=== PATIENT | male | born 1970 ===

== ENCOUNTER 2017-08-21 21:38 | Inpatient (IN) | payer MEDICAID ==
[2017-08-21 21:39] VITALS: BMI 31.7
--- NOTE | 2017-08-21 23:15 | ED PDOC ---
HPI: Psych/Substance Abuse Time Seen by Provider: 08/21/17 21:40 Chief Complaint (Nursing): Psychiatric Evaluation Chief Complaint (Provider): Psychiatric Evaluation ED Caveat: Intoxicated History Per: Patient History/Exam Limitations: no limitations Onset/Duration Of Symptoms: Mins (SKILLS TRAINER) Current Symptoms Are (Timing): Still Present Additional Complaint(s): 47 year old male presents to the ED for evaluation. Patient reports that he drank "too much", but is a poor historian due to alcohol intake. Denies any medical complaints. PMD: none provided Past Medical History Reviewed: Historical Data, Nursing Documentation, Vital Signs Vital Signs: Last Vital Signs Temp 98.2 F 08/21/17 21:40 Pulse 104 H 08/21/17 21:40 Resp 16 08/21/17 21:40 BP 152/95 H 08/21/17 21:40 Pulse Ox 92 L 08/21/17 21:40 - Medical History PMH: Anxiety, Asthma, Bipolar Disorder, Bronchitis, COPD, Depression, Fibromyalgia, Fractures (b/l elbows), GERD, HTN, Paranoia, Schizophrenia Denies: Alzheimer's Disease, Anemia, Arthritis, Cardia Arrhythmia, CHF, Crohn 's Disease, Dementia, Diabetes, Diverticulitis, Emphysema, Gastrointestinal Ulcer, Gall Bladder Disease, Hepatitis, HIV, Hypercholesterolemia, Hyperthyroidism, Hypothyroidism, Kidney Stones, Migraine, Mitral Valve Prolapse , Osteoporosis, Pancreatitis, Parkinson's Disease, Peripheral Edema, Pneumonia, Post Traumatic Stress Disorder, Chronic Kidney Disease, Seizures, Sickle Cell Disease, Sexually Transmitted Disease, Sleep Apnea, TIA - Surgical History Surgical History: Denies: Appendectomy, Cholecystectomy, Coronary Stent, Pacemaker - Family History Family History: States: Unknown Family Hx - Immunization History Hx Tetanus Toxoid Vaccination: Yes (09/09/06) Hx Influenza Vaccination: No Hx Pneumococcal Vaccination: No - Home Medications Home Medications: Ambulatory Orders Medication Instructions Recorded Acetaminophen [Tylenol 325mg tab] 650 mg PO Q6H PRN tab 06/09/17 Albuterol 0.5% [Albuterol 0.5% 2.5 mg IH QID PRN neb 06/09/17 Inhal Cindy (2.5 mg/0.5 ml) UD] Atorvastatin [Lipitor] 20 mg PO DIN #30 tab 06/09/17 Divalproex [Depakote DR(*BID*)] 500 mg PO AMHS #30 tcp 06/09/17 Famotidine 40 mg PO DAILY 06/09/17 Famotidine [Pepcid] 40 mg PO HS #30 tab 06/09/17 Folic Acid 1 mg PO DAILY tab 06/09/17 Gabapentin [Neurontin] 600 mg PO TID #60 tab 06/09/17 Insulin Human Regular-LOW [HumuLIN 1 units SC ACHS #10 ml 06/09/17 R LOW] Lisinopril [Zestril] 5 mg PO DAILY #20 tab 06/09/17 MetFORMIN [glucoPHAGE] 850 mg PO BID #30 tab 06/09/17 Pantoprazole [Protonix EC Tab] 40 mg PO ACB ect 06/09/17 QUEtiapine [Seroquel] 200 mg PO AMHS #0 tab 06/09/17 SITagliptin [Januvia] 100 mg PO DAILY tab 06/09/17 Thiamine [Vitamin B1 Tab] 100 mg PO DAILY tab 06/09/17 Zolpidem [Ambien] 10 mg PO HS PRN #15 tab 06/09/17 - Allergies Allergies/Adverse Reactions: Allergies Allergy/AdvReac Type Severity Reaction Status Date / Time BEE STINGS Allergy Severe ANAPHYLAXIS Uncoded 08/21/17 21:40 Review of Systems ROS Statement: Except As Marked, All Systems Reviewed And Found Negative Review Of Systems: ROS cannot be obtained secondary to pt's inabilty to answer questions. (intoxicated) Physical Exam - Reviewed Nursing Documentation Reviewed: Yes Vital Signs Reviewed: Yes - Physical Exam Appears: Positive for: No Acute Distress (intoxi) Head Exam: Positive for: ATRAUMATIC, NORMOCEPHALIC Skin: Positive for: Normal Color, Warm, Dry Eye Exam: Positive for: EOMI, Normal appearance, PERRL Neck: Positive for: Normal, Painless ROM, Supple Cardiovascular/Chest: Positive for: Regular Rate, Rhythm Respiratory: Positive for: CNT, Normal Breath Sounds Extremity: Positive for: Normal ROM. Negative for: Deformity Neurologic/Psych: Positive for: Alert, Oriented. Negative for: Motor/Sensory Deficits - Laboratory Results Result Diagrams: 08/21/17 23:22 08/21/17 23:22 - ECG O2 Sat by Pulse Oximetry: 92 (RA) Pulse Ox Interpretation: Normal Medical Decision Making Medical Decision Making: Time: 21:57 Impression: alcohol intoxication Initial Plan: --Salicylate --Acetaminophen --BMP --Urine drug --CBC with differentials --Restraint: violent --Urinalysis --pending sobriety and reevaluation Patient was agitated and needed to be restrained due to being danger to self and staff in the ER. Crisis evaluation was ordered. pt clinically sober. Time: 03:20 --Patient is admitted to inpatient care in Adult Psychiatry as per crisis to Dr. Love. Diagnosis is bipolar disorder. Labs revealed patient is positive for cocaine in urine drug screen. Scribe Attestation: Documented by Kiki Clarke, acting as a scribe for Frankie Metz MD. Provider Scribe Attestation: All medical record entries made by the Scribe were at my direction and personally dictated by me. I have reviewed the chart and agree that the record accurately reflects my personal performance of the history, physical exam, medical decision making, and the department course for this patient. I have also personally directed, reviewed, and agree with the discharge instructions and disposition. Disposition - Clinical Impression Clinical Impression: Bipolar 1 disorder - Patient ED Disposition Is Patient to be Admitted: Yes - Disposition Disposition Time: 00:21 Condition: STABLE - Pt Status Changed To: Hospital Disposition Of: Inpatient - Admit Certification Admit to Inpatient:: After my assessment, the patient will require hospitalization for at least two midnights. This is because of the severity of symptoms shown, intensity of services needed, and/or the medical risk in this patient being treated as an outpatient.
[2017-08-21 23:59] LABS: BASO # 0.1 K/uL (0.0-0.2); BASO % 1.1 % (0.0-2.0); EOS # 0.7 K/uL (0.0-0.7); EOS % 5.7 % (0.0-4.0); HEMOGLOBIN 18.2 g/dL (12.0-18.0); LYMPH % 40.8 % (20.0-40.0); MEAN CELL VOLUME 90.7 fl (80.0-94.0); MEAN CORPUSCULAR HEMOGLOBIN 30.8 pg (27.0-31.0); MEAN PLATELET VOLUME 9.9 fl (7.2-11.7); MONO # 0.7 K/uL (0.0-0.8); MONO % 5.9 % (0.0-10.0); NEUT # 5.7 K/uL (1.8-7.0); NEUT % 46.5 % (50.0-75.0); NRBC % 0.2 % (0.0-0.0); RBC 5.92 Mil/uL (4.40-5.90); RED CELL DISTRIBUTION WIDTH 15.5 % (11.5-14.5); WHITE BLOOD COUNT 12.2 K/uL (4.8-10.8)
[2017-08-22 00:06] LABS: ACETAMINOPHEN < 10.0 ug/ml (10.0-30.0); BLOOD UREA NITROGEN 10 mg/dl (9-20); CALCIUM 9.3 mg/dL (8.4-10.2); GFR AFRICAN-AMERICAN > 60; GFR NON-AFRICAN AMERICAN > 60; SALICYLATE < 1.0 mg/dl
[2017-08-22 02:47] LABS: BARBITURATES, UR NEGATIVE (NEGATIVE); BENZODIAZEPINES, UR NEGATIVE (NEGATIVE); OPIATES, UR NEGATIVE (NEGATIVE); PHENCYCLIDINE, UR NEGATIVE (NEGATIVE); SQUAMOUS EPITHIAL < 1 /hpf (0-5); URINE BACTERIA RARE (<OCC); URINE BILIRUBIN NEGATIVE (NEGATIVE); URINE BLOOD NEGATIVE (NEGATIVE); URINE CLARITY SLIGHTY-CLOUDY (Clear); URINE COLOR YELLOW (YELLOW); URINE GLUCOSE (UA) NEG (Normal); URINE LEUKOCYTE ESTERASE NEG Leu/uL (Negative); URINE PROTEIN 100 mg/dL (NEGATIVE)
--- NOTE | 2017-08-22 08:56 | CARD ---
APPROVED REPORT EKG Measurement Heart [id number] <Conclusion> Sinus tachycardia Incomplete right bundle branch block Borderline ECG
[2017-08-22] MEDS ORDERED: Magnesium Hydroxide Susp 30 ml UD PO PRN (09:02)
[2017-08-22] MEDS ORDERED: DiphenhydrAMINE 50 mg/ml Inj IM PRN (09:02)
[2017-08-22] MEDS ORDERED: Alum-Mag Hydrox-Simethicone Susp (30 mL) PO PRN (09:02)
--- NOTE | 2017-08-22 09:40 | RAD ---
HISTORY: chest pain COMPARISON: Comparison made with chest radiograph 03/01/2011. FINDINGS: LUNGS: Poor inspiration with low lung volumes, crowded bronchovascular markings and bibasilar atelectasis; developing lower lobe infiltrates could be excluded with followup radiographs. PLEURA: No significant pleural effusion identified, no pneumothorax apparent. CARDIOVASCULAR: Heart size borderline enlarged OSSEOUS STRUCTURES: No significant abnormalities. VISUALIZED UPPER ABDOMEN: Normal. OTHER FINDINGS: None. IMPRESSION: Poor inspiration with low lung volumes, crowded bronchovascular markings and bibasilar atelectasis; developing lower lobe infiltrates could be excluded with followup radiographs.
[2017-08-22] MEDS: Pantoprazole 40 mg EC Tab PO SCH (12:54)
--- NOTE | 2017-08-22 14:34 | PCM.PSYCH ---
Initial Psychiatric Evaluation - Initial Psychiatric Evaluation Type of Admission: Voluntary Legal Status: Capacity Chief Complaint (in patient's own words): I am depressed and I am hearin voices Patient's Reaction to Hospitalization: pt requesting help History of Present Illness and Precipitating Events: Pt is a 47yo male with previous diagnosis of alcohol, cocaine and cannabis use disorder, Pt was recently admitted in [facility] psych unit from 08/05-08/20. Pt on discharge relapsed on alcohol and cocaine, became increasingly depressed, related to homelessness pt started experiencing suicidal ideations, he also started experiencing auditory hallucinations command in nature to hurt himself and others, pt came to ER seeking help. on the unit pt reported feeling hopeless and helpless , denied any current suicidal ideations or intent on the unit also denied command hallucinations Current Medications: Active Medications Generic Name Dose Route Start Last Admin Trade Name Freq PRN Reason Stop Dose Admin Acetaminophen 650 mg 08/22/17 09:02 Tylenol 325mg Tab PO Q4 PRN Pain, moderate (4-7) Al Hydrox/Mg Hydrox/Simethicone 30 ml 08/22/17 09:02 Maalox Plus 30 Ml PO Q4 PRN Dyspepsia Atorvastatin Calcium 20 mg 08/22/17 17:00 Lipitor PO DIN ALEX Diphenhydramine HCl 50 mg 08/22/17 09:02 Benadryl IM Q6 PRN Extrapyramidal S/S Unable PO Diphenhydramine HCl 50 mg 08/22/17 09:02 Benadryl PO Q6 PRN Extrapyramidal Symptoms Famotidine 40 mg 08/22/17 22:00 Pepcid PO HS ALEX Folic Acid 1 mg 08/22/17 10:00 08/22/17 12:54 Folic Acid PO 1 mg DAILY ALEX Administration Gabapentin 100 mg 08/22/17 17:00 Neurontin PO TID ALEX Haloperidol 5 mg 08/22/17 09:02 Haldol PO Q4 PRN Agitation Haloperidol Lactate 5 mg 08/22/17 09:02 Haldol IM Q4 PRN Agitation, Unable to Take PO Lisinopril 5 mg 08/22/17 10:00 08/22/17 12:53 Zestril PO 5 mg DAILY ALEX Administration Lorazepam 2 mg 08/22/17 09:02 Ativan IM Q4 PRN Anxiety/Agitation,Unable PO Lorazepam 2 mg 08/22/17 09:02 Ativan PO Q4 PRN Anxiety/Agitation Lorazepam 1 mg 08/22/17 14:15 Ativan PO TID ALEX Magnesium Hydroxide 30 ml 08/22/17 09:02 Milk Of Magnesia PO HS PRN Constipation Metformin HCl 850 mg 08/22/17 10:00 08/22/17 12:55 Glucophage PO 850 mg BID ALEX Administration Pantoprazole Sodium 40 mg 08/22/17 10:00 08/22/17 12:54 Protonix Ec Tab PO 40 mg ACB ALEX Administration Quetiapine Fumarate 25 mg 08/22/17 17:00 Seroquel PO BID ALEX Quetiapine Fumarate 100 mg 08/22/17 22:00 Seroquel PO HS ALEX Sitagliptin Phosphate 100 mg 08/22/17 09:54 08/22/17 12:54 Januvia PO 100 mg DAILY ALEX Administration Thiamine HCl 100 mg 08/22/17 10:00 08/22/17 12:54 Vitamin B1 Tab PO 100 mg DAILY ALEX Administration Past Psychiatric History - Past Psychiatric History Explanation of prior treatment: pt has multiple inpatient hospitalizations, history of non compliance with treatment History of ETOH/Drug Use: history of alcohol, cocaine and cannabis use Pertinent Medical Hx (Current Medical&Sleep Prob, Allergies): Allergies Allergy/AdvReac Type Severity Reaction Status Date / Time BEE STINGS Allergy Severe ANAPHYLAXIS Uncoded 08/21/17 21:40 Acetaminophen [Tylenol 325mg tab] 650 mg PO Q6H PRN tab 06/09/17 Albuterol 0.5% [Albuterol 0.5% Inhal Cindy (2.5 mg/0.5 ml) UD] 2.5 mg IH QID PRN neb 06/09/17 Atorvastatin [Lipitor] 20 mg PO DIN #30 tab 06/09/17 Divalproex [Depakote DR(*BID*)] 500 mg PO AMHS #30 tcp 06/09/17 Famotidine 40 mg PO DAILY 06/09/17 Famotidine [Pepcid] 40 mg PO HS #30 tab 06/09/17 Folic Acid 1 mg PO DAILY tab 06/09/17 Gabapentin [Neurontin] 600 mg PO TID #60 tab 06/09/17 Insulin Human Regular-LOW [HumuLIN R LOW] 1 units SC ACHS #10 ml 06/09/17 Lisinopril [Zestril] 5 mg PO DAILY #20 tab 06/09/17 MetFORMIN [glucoPHAGE] 850 mg PO BID #30 tab 06/09/17 Pantoprazole [Protonix EC Tab] 40 mg PO ACB ect 06/09/17 QUEtiapine [Seroquel] 200 mg PO AMHS #0 tab 06/09/17 SITagliptin [Januvia] 100 mg PO DAILY tab 06/09/17 Thiamine [Vitamin B1 Tab] 100 mg PO DAILY tab 06/09/17 Zolpidem [Ambien] 10 mg PO HS PRN #15 tab 06/09/17 Mental Status Examination - Personal Presentation Personal Presentation: Looks older than stated age Additional comments: unkempt, disheveled - Affect Affect: Constricted, Depressed - Motor Activity Motor Activity: Psychomotor Retardation - Reliability in Providing Information Reliability in Providing Information: Poor, due to alteration in thoughts, Poor , due to altered mood - Speech Speech: Tangential - Mood Mood: Depressed, Anxious - Formal Thought Process Formal Thought Process: Circumstantial - Hallucinations/Delusions Hallucinations: Auditory Additional comments: pt reported non command auditory hallucinations - Obsessions/Compulsions Obsessions: No Compulsions: No - Cognitive Functions Orientation: Person, Place Sensorium: Alert Attention/Concentration: Attentive Abstract Thinking: Rarden Estimate of Intelligence: Below average Judgement: Imparied, as evidence by: Poor judgement, Imparied, as evidence by: Lack of insight into illness - Risk Risk: Withdrawal, Diminished functioning - Strength & Assets Inventory Strength & Assets Inventory: Life experience - Limitations Additional comments: homelessness DSM 5 DX - DSM 5 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 cocaine use disorder alcohol use disorder hx of bipolar disorder - Recommended/Plan of Treatment Treatment Recommendations and Plan of Treatment: ativan 1mg tid , monitor pt for symptoms and signs of alcohol withdrawal neurontin 100mg tid for anxiety and alcohol withdrawal seizures seroquel 25mg bid and 100mg qhs with plan to uptitrate gradually motivational and group therapy monitor pt for psychopharmacological effects and side effect profile Prognosis: guarded Discharge Plan and Discharge Criteria: pt mental status stable
--- NOTE | 2017-08-22 14:54 | CP.PCM.CON ---
History of Present Illness - History of Present Illness History of Present Illness: Reason for Consult: Per hospital protocol HPI: 47M PMH DM HTN HLD GERD admitted to psych for cocaine induced psychosis. No other complaints at this time. HD stable, NAD. ROS: Per HPI, all other systems reviewed and neg PMH: DM HTN HLD GERD PSH: elbow FH: denies SH: +ETOH, COCAINE, MARIJUANA NKDA Vitals Reviewed GEN: WDWN, ALERT, COOPERATIVE HEENT: NCAT, PERRL, EOMI HEART: RRR, +S1S2, NO MRG LUNG: CTAB, NO WRR ABD: SOFT, NT, ND, NO HSM, NO MASSES EXT: NORMAL PEDAL PULSES, GOOD CAPILLARY REFILL NEURO: AAOX3, STRENGTH EQUAL BILATERAL UPPER AND LOWER EXTREMITIES SKIN: WARM, DRY PSYCH: NORMAL MOOD, NORMAL AFFECT LABS 08/22/17 08/22/17 08/21/17 02:24 02:24 23:22 WBC 12.2 H RBC 5.92 H Hgb 18.2 H Hct 53.7 H MCV 90.7 MCH 30.8 MCHC 34.0 RDW 15.5 H Plt Count 213 MPV 9.9 Neut % (Auto) 46.5 L Lymph % (Auto) 40.8 H [place] % (Auto) 5.9 Eos % (Auto) 5.7 H Baso % (Auto) 1.1 Neut # (Auto) 5.7 Lymph # (Auto) 5.0 H [place] # (Auto) 0.7 Eos # (Auto) 0.7 Baso # (Auto) 0.1 Sodium Potassium Chloride Carbon Dioxide Anion Gap BUN Creatinine Est GFR ( Amer) Est GFR (Non-Af Amer) POC Glucose (mg/dL) Random Glucose Calcium Urine Color Yellow Urine Clarity Slighty-cloudy Urine pH 6.0 Ur Specific Bishop 1.023 Urine Protein 100 Urine Glucose (UA) Neg Urine Ketones Negative Urine Blood Negative Urine Nitrate Negative Urine Bilirubin Negative Urine Urobilinogen 4.0 Ur Leukocyte Esterase Neg Urine RBC (Auto) 3 Urine Microscopic WBC < 1 Ur Squamous Epith Cells < 1 Urine Bacteria Rare Hyaline Casts 3-5 H Salicylates Urine Opiates Screen Negative Urine Methadone Screen Negative Acetaminophen Ur Barbiturates Screen Negative Ur Phencyclidine Scrn Negative Ur Amphetamines Screen Negative U Benzodiazepines Scrn Negative U Oth Cocaine Metabols Positive H U Cannabinoids Screen Negative Alcohol, Quantitative 08/21/17 08/21/17 08/21/17 23:22 23:22 22:26 WBC RBC Hgb Hct MCV MCH MCHC RDW Plt Count MPV Neut % (Auto) Lymph % (Auto) [place] % (Auto) Eos % (Auto) Baso % (Auto) Neut # (Auto) Lymph # (Auto) [place] # (Auto) Eos # (Auto) Baso # (Auto) Sodium 148 Potassium 3.9 Chloride 103 Carbon Dioxide 23 Anion Gap 26 H BUN 10 Creatinine 0.7 L Est GFR ( Amer) > 60 Est GFR (Non-Af Amer) > 60 POC Glucose (mg/dL) 117 H Random Glucose 123 H Calcium 9.3 Urine Color Urine Clarity Urine pH Ur Specific Bishop Urine Protein Urine Glucose (UA) Urine Ketones Urine Blood Urine Nitrate Urine Bilirubin Urine Urobilinogen Ur Leukocyte Esterase Urine RBC (Auto) Urine Microscopic WBC Ur Squamous Epith Cells Urine Bacteria Hyaline Casts Salicylates < 1.0 Urine Opiates Screen Urine Methadone Screen Acetaminophen < 10.0 L Ur Barbiturates Screen Ur Phencyclidine Scrn Ur Amphetamines Screen U Benzodiazepines Scrn U Oth Cocaine Metabols U Cannabinoids Screen Alcohol, Quantitative 274 H ASSESSMENT AND PLAN 47M PMH DM HTN HLD GERD admitted to psych for cocaine induced psychosis. No other complaints at this time. HD stable, NAD. DM HTN HLD GERD continue home medications as below: SITagliptin [Januvia] 100 mg PO DAILY Folic Acid 1 mg PO DAILY Lisinopril [Zestril] 5 mg PO DAILY Pantoprazole [Protonix EC Tab] 40 mg PO ACB Thiamine [Vitamin B1 Tab] 100 mg PO DAILY metFORMIN [glucOPHAGE] 850 mg PO BID Atorvastatin [Lipitor] 20 mg PO DIN Gabapentin [Neurontin] 100 mg PO TID Famotidine [Pepcid] 40 mg PO HS Past Patient History - Infectious Disease Hx of Infectious Diseases: None - Tetanus Immunizations Tetanus Immunization: Unknown - Past Social History Smoking Status: Heavy Smoker > 10 Cigarettes Daily - CARDIAC Hx Cardiac Disorders: No Hx Hypertension: Yes - PULMONARY Hx Respiratory Disorders: No Hx Tuberculosis: No - NEUROLOGICAL Hx Neurological Disorder: No HX Cerebrovascular Accident: No Hx Seizures: No - HEENT Hx HEENT Problems: No Hx Cataracts: No Hx Deafness: No Hx Difficulty Chewing: No Hx Epistaxis: No Hx Glaucoma: No Hx Macular Degeneration: No Other/Comment: Wears Glasses - RENAL Hx Chronic Kidney Disease: No Hx Kidney Stones: No - ENDOCRINE/METABOLIC Hx Hyperthyroidism: No Hx Hypothyroidism: No - HEMATOLOGICAL/ONCOLOGICAL Hx Blood Disorders: No Hx Cancer: No Hx Human Immunodeficiency Virus (HIV): No - INTEGUMENTARY Hx Dermatological Problems: No Hx Basil Cell: No Hx Eczema: No Hx Melanoma: No Hx Psoriasis: No Hx Squamous Cell: No - MUSCULOSKELETAL/RHEUMATOLOGICAL Hx Musculoskeletal Disorders: Yes Hx Arthritis: No Hx Fractures: Yes (b/l elbows) Hx Osteoporosis: No - GASTROINTESTINAL Hx Gastrointestinal Disorders: No Hx Crohn's Disease: No Hx Diverticulitis: No Hx Gall Bladder Disease: No Hx Pancreatitis: No - GENITOURINARY/GYNECOLOGICAL Hx Genitourinary Disorders: No Hx Sexually Transmitted Disorders: No - PSYCHIATRIC Hx Anxiety: Yes Hx Depression: Yes Hx Emotional Abuse: No Hx Physical Abuse: No Hx Sexual Abuse: No Hx Substance Use: Yes (Urine positive for cocaine) - SURGICAL HISTORY Hx Appendectomy: No Hx Cholecystectomy: No Hx Coronary Stent: No - ANESTHESIA Hx Anesthesia: Yes Hx Anesthesia Reactions: No Hx Malignant Hyperthermia: No Meds Allergies/Adverse Reactions: Allergies Allergy/AdvReac Type Severity Reaction Status Date / Time BEE STINGS Allergy Severe ANAPHYLAXIS Uncoded 08/21/17 21:40 - Medications Medications: Current Medications Acetaminophen (Tylenol 325mg Tab) 650 mg PO Q4 PRN PRN Reason: Pain, moderate (4-7) Al Hydrox/Mg Hydrox/Simethicone (Maalox Plus 30 Ml) 30 ml PO Q4 PRN PRN Reason: Dyspepsia Atorvastatin Calcium (Lipitor) 20 mg PO DIN ALEX Diphenhydramine HCl (Benadryl) 50 mg IM Q6 PRN PRN Reason: Extrapyramidal S/S Unable PO Diphenhydramine HCl (Benadryl) 50 mg PO Q6 PRN PRN Reason: Extrapyramidal Symptoms Famotidine (Pepcid) 40 mg PO HS [facility] Folic Acid (Folic Acid) 1 mg PO DAILY [facility] Last Admin: 08/22/17 12:54 Dose: 1 mg Gabapentin (Neurontin) 100 mg PO TID ALEX Haloperidol (Haldol) 5 mg PO Q4 PRN PRN Reason: Agitation Haloperidol Lactate (Haldol) 5 mg IM Q4 PRN PRN Reason: Agitation, Unable to Take PO Lisinopril (Zestril) 5 mg PO DAILY [facility] Last Admin: 08/22/17 12:53 Dose: 5 mg Lorazepam (Ativan) 2 mg IM Q4 PRN PRN Reason: Anxiety/Agitation,Unable PO Lorazepam (Ativan) 2 mg PO Q4 PRN PRN Reason: Anxiety/Agitation Lorazepam (Ativan) 1 mg PO TID [facility] Last Admin: 08/22/17 14:46 Dose: 1 mg Magnesium Hydroxide (Milk Of Magnesia) 30 ml PO HS PRN PRN Reason: Constipation Metformin HCl (Glucophage) 850 mg PO BID [facility] Last Admin: 08/22/17 12:55 Dose: 850 mg Pantoprazole Sodium (Protonix Ec Tab) 40 mg PO ACB [facility] Last Admin: 08/22/17 12:54 Dose: 40 mg Quetiapine Fumarate (Seroquel) 25 mg PO BID [facility] Quetiapine Fumarate (Seroquel) 100 mg PO HS [facility] Sitagliptin Phosphate (Januvia) 100 mg PO DAILY [facility] Last Admin: 08/22/17 12:54 Dose: 100 mg Thiamine HCl (Vitamin B1 Tab) 100 mg PO DAILY [facility] Last Admin: 08/22/17 12:54 Dose: 100 mg Results - Vital Signs Recent Vital Signs: Last Vital Signs Temp 97.9 F 08/22/17 10:00 Pulse 109 H 08/22/17 12:53 Resp 20 08/22/17 10:00 BP 160/115 H 08/22/17 12:53 Pulse Ox 96 08/22/17 06:18 - Labs Result Diagrams: 08/21/17 23:22 08/21/17 23:22 Labs: Laboratory Results - last 24 hr 08/21/17 08/21/17 08/21/17 22:26 23:22 23:22 WBC RBC Hgb Hct MCV MCH MCHC RDW Plt Count MPV Neut % (Auto) Lymph % (Auto) [place] % (Auto) Eos % (Auto) Baso % (Auto) Neut # (Auto) Lymph # (Auto) [place] # (Auto) Eos # (Auto) Baso # (Auto) Sodium 148 Potassium 3.9 Chloride 103 Carbon Dioxide 23 Anion Gap 26 H BUN 10 Creatinine 0.7 L Est GFR ( Amer) > 60 Est GFR (Non-Af Amer) > 60 POC Glucose (mg/dL) 117 H Random Glucose 123 H Calcium 9.3 Urine Color Urine Clarity Urine pH Ur Specific [place] Urine Protein Urine Glucose (UA) Urine Ketones Urine Blood Urine Nitrate Urine Bilirubin Urine Urobilinogen Ur Leukocyte Esterase Urine RBC (Auto) Urine Microscopic WBC Ur Squamous Epith Cells Urine Bacteria Hyaline Casts Salicylates < 1.0 Urine Opiates Screen Urine Methadone Screen Acetaminophen < 10.0 L Ur Barbiturates Screen Ur Phencyclidine Scrn Ur Amphetamines Screen U Benzodiazepines Scrn U Oth Cocaine Metabols U Cannabinoids Screen Alcohol, Quantitative 274 H 08/21/17 08/22/17 08/22/17 23:22 02:24 02:24 WBC 12.2 H RBC 5.92 H Hgb 18.2 H Hct 53.7 H MCV 90.7 MCH 30.8 MCHC 34.0 RDW 15.5 H Plt Count 213 MPV 9.9 Neut % (Auto) 46.5 L Lymph % (Auto) 40.8 H [place] % (Auto) 5.9 Eos % (Auto) 5.7 H Baso % (Auto) 1.1 Neut # (Auto) 5.7 Lymph # (Auto) 5.0 H [place] # (Auto) 0.7 Eos # (Auto) 0.7 Baso # (Auto) 0.1 Sodium Potassium Chloride Carbon Dioxide Anion Gap BUN Creatinine Est GFR ( Amer) Est GFR (Non-Af Amer) POC Glucose (mg/dL) Random Glucose Calcium Urine Color Yellow Urine Clarity Slighty-cloudy Urine pH 6.0 Ur Specific [place] 1.023 Urine Protein 100 Urine Glucose (UA) Neg Urine Ketones Negative Urine Blood Negative Urine Nitrate Negative Urine Bilirubin Negative Urine Urobilinogen 4.0 Ur Leukocyte Esterase Neg Urine RBC (Auto) 3 Urine Microscopic WBC < 1 Ur Squamous Epith Cells < 1 Urine Bacteria Rare Hyaline Casts 3-5 H Salicylates Urine Opiates Screen Negative Urine Methadone Screen Negative Acetaminophen Ur Barbiturates Screen Negative Ur Phencyclidine Scrn Negative Ur Amphetamines Screen Negative U Benzodiazepines Scrn Negative U Oth Cocaine Metabols Positive H U Cannabinoids Screen Negative Alcohol, Quantitative
--- NOTE | 2017-08-22 15:39 | PCM.BM ---
<Vibha Flores - Last Filed: 08/22/17 15:36> Treatment Plan Problems - Problems identified on initial assessmt Feelings of Worthlessness Date Initiated: 08/22/17 Time Initiated: 15:37 Assessment reference: NA Status: Active Treatment assets and liabiliti Patient Assests: cooperative, resourceful, self-reliant, ADL independent, negotiates basic needs, cognitively intact Patient Liabilities: relationship conflicts, substance abuse - Milieu Protocol Maintain good personal hygiene: daily Encourage regular showers, every shift Remind patient to perform daily oral care, every shift Assist patient to perform ADL's Conduct patient checks and document Observation sheet: Q15 minutes Maintain personal safety: every shift Educate patient to report safety concerns to staff, every shift Monitor environment for contraband/sharps Medication safety: Monitor for expected outcome, potential side effects: every shift, Assess barriers to learning: every shift, Assess readiness for medication education: every shift Milieu Narrative: ativan 1mg tid , monitor pt for symptoms and signs of alcohol withdrawal neurontin 100mg tid for anxiety and alcohol withdrawal seizures seroquel 25mg bid and 100mg qhs with plan to uptitrate gradually motivational and group therapy monitor pt for psychopharmacological effects and side effect profile Discharge/Continuing Care - Treatment Team Participation Patient/Family/SO Statement: ativan 1mg tid , monitor pt for symptoms and signs of alcohol withdrawal neurontin 100mg tid for anxiety and alcohol withdrawal seizures seroquel 25mg bid and 100mg qhs with plan to uptitrate gradually motivational and group therapy monitor pt for psychopharmacological effects and side effect profile <Fransisco Bingham - Last Filed: 08/26/17 11:51> Family Contact Family involvement: Family/SO is involved Family contact: Patient declines to allow family contact at present Family contact name: Pt denied. - Goals for Treatment Patient goals for treatment: Pt would like his mood to be elevated and for his homicidal ideations to dissipate. Pt also has concrete concerns, such as housing. Patient's family/SO goals for treatment: None. Discharge/Continuing Care - Education Needs Education Needs: Patient Medication, Patient Diagnosis/Disease Process, Patient Coping Skills, Patient Placement options, Patient Community resources, Patient Activities of Daily Living, Patient Personal Hygiene/Grooming, Patient Aftercare Safety Plan - Discharge Discharge Criteria: Tolerates medication w/o severe side effects, Free of Suicidal thoughts, Free of Homicidal thoughts, Free of paranoid thoughts, Free of agitation, Normal sleep pattern, Ability to care for self, Reduction of target symptoms Discharge to:: [facility] - Additional Comments 08/26/17 11:54 Pt reported he is still feeling sad, depressed and mad at times. Pt is still endorsing homicidal ideations, but could not elaborate on these ideations. Pt seemed to minimize his substance use and was not able to understand the impact that it has on his mental stability. Pt discussed residential rehab and a boarding home, yet pt was unable to pay his rent and with the severity of his mental health symptoms, mainly the homicidal ideations, it is unlikely that anywhere would accept him. The current plan is to refer pt to a [facility]. - Treatment Team Participation Discussed with Family/SO: No Was Patient/Family/SO present at Treatment Team Meeting: Yes <Nany Chaparro - Last Filed: 08/26/17 16:26> - Diagnosis (1) Bipolar 1 disorder Status: Acute Interventions: psychotherapy. pharmacotherapy 08/26/17 16:26
[2017-08-23 07:15] LABS: T4 6.46 ug/dl (5.5-11.0)
[2017-08-23] MEDS: Pantoprazole 40 mg EC Tab PO SCH (09:06)
--- NOTE | 2017-08-23 14:12 | PCM.PYCHPN ---
Psychiatric Progress Note - Psychiatric Progress Note Patient seen today, length of contact: pt evaluated discussed with team chart reviewed Patient Chief Complaint: I feel tired and I have no energy Problems Identified/Issues Discussed: pt on evaluation seen in bed, poor eye contact underproductive speech,, unkempt , not attending to personal hygiene, pt has not been participating in treatment or groups, discussed with pt importance of attending groups, pt continues to report non command auditory hallucinations, depressed . 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 cocaine use disorder alcohol use disorder Medication Change: Yes (discontinue ativan gradually) Medical Record Reviewed: Yes Mental Status Examination - Cognitive Function Orientation: Person, Place Attention: Poor Concentration: Poor Association: WNL Fund of Knowledge: Poor Decription of patient's judgement and insights: poor insight and judgement - Mood Mood: Depressed, Anxious - Affect Affect: Constricted, Depressed - Speech Additional comments: underproductive - Formal Thought Process Formal Thought Process: Hallucinations, Circumstantial Psychotic Thoughts and Behaviors: pt reoported non command auditory hallucinations - Suicidal Ideation Suicidal Ideation: No - Homicidal Ideation Homicidal Ideation: No Goal/Treatment Plan - Goal/Treatment Plan Need for Continued Stay: Severe depression anxiety, Discharge may exacerbated symptoms Progress Toward Problem(s) and Goals/Treatment Plan: downtitrate ativan gradually , monitor pt for symptoms and signs of alcohol withdrawal neurontin 100mg tid for anxiety and alcohol withdrawal seizures seroquel 25mg bid and 100mg qhs with plan to uptitrate gradually motivational and group therapy monitor pt for psychopharmacological effects and side effect profile
[2017-08-24] MEDS: Pantoprazole 40 mg EC Tab PO SCH (08:40)
--- NOTE | 2017-08-24 14:30 | PCM.PYCHPN ---
Psychiatric Progress Note - Psychiatric Progress Note Patient seen today, length of contact: pt evaluated discussed with team chart reviewed Patient Chief Complaint: I fam trying to participate but I feel tired Problems Identified/Issues Discussed: pt on evaluation seen in bed, poor eye contact underproductive speech,, unkempt , not attending to personal hygiene, pt has not been participating in treatment or groups, discussed with pt importance of attending groups, pt continues to report non command auditory hallucinations, depressed . low energy , anhedonia denied any current suicidal or homicidal ideations, no reported side effects of medications Medical Problems: pt has multiple inpatient hospitalizations, history of non compliance with treatment DSM 5 Symptoms Update: alcohol induced mood disorder with depressive features cocaine use disorder bipolar disorder Medication Change: Yes (discontinue ativan) Medical Record Reviewed: Yes Mental Status Examination - Cognitive Function Orientation: Person, Place Attention: Poor Concentration: Poor Association: WNL Fund of Knowledge: Poor Decription of patient's judgement and insights: poor insight and judgement - Mood Mood: Depressed, Anxious - Affect Affect: Constricted, Depressed - Formal Thought Process Formal Thought Process: Hallucinations, Circumstantial Psychotic Thoughts and Behaviors: pt reoported non command auditory hallucinations - Suicidal Ideation Suicidal Ideation: No - Homicidal Ideation Homicidal Ideation: No Goal/Treatment Plan - Goal/Treatment Plan Need for Continued Stay: Severe depression anxiety, Discharge may exacerbated symptoms Progress Toward Problem(s) and Goals/Treatment Plan: discontinue ativan l neurontin 100mg tid seroquel 25mg bid and 100mg qhs with plan to uptitrate gradually motivational and group therapy monitor pt for psychopharmacological effects and side effect profile
[2017-08-24 20:28] VITALS: O2SAT 92
[2017-08-25] MEDS: Pantoprazole 40 mg EC Tab PO SCH (09:42)
--- NOTE | 2017-08-25 12:21 | PCM.PYCHPN ---
Psychiatric Progress Note - Psychiatric Progress Note Patient seen today, length of contact: pt evaluated discussed with team chart reviewed Patient Chief Complaint: I still hear voices Problems Identified/Issues Discussed: pt evaluated in day room, continues to be depressed, dressed in hospital gown, unkempt, no attending to personal hygiene, pt continues to report non command auditory hallucinations, low energy and poor interest in daily activity, discussed with pt increasing seroquel and to discontinue neurontin encouraged pt to attend groups and participate in treatment pt denied any current suicidal or homicidal ideations, no reported side effects of medications Medical Problems: pt has multiple inpatient hospitalizations, history of non compliance with treatment DSM 5 Symptoms Update: bipolar disorder cocaine use disorder alcohol use disorder Medication Change: Yes (discontinue neurontin) Medical Record Reviewed: Yes Mental Status Examination - Cognitive Function Orientation: Person, Place Attention: WNL Concentration: WNL Association: WNL Fund of Knowledge: Poor Decription of patient's judgement and insights: poor insight and judgement - Mood Mood: Depressed, Anxious - Affect Affect: Constricted, Depressed - Speech Speech: Appropriate - Formal Thought Process Formal Thought Process: Hallucinations, Circumstantial Psychotic Thoughts and Behaviors: pt reoported non command auditory hallucinations - Suicidal Ideation Suicidal Ideation: No - Homicidal Ideation Homicidal Ideation: No Goal/Treatment Plan - Goal/Treatment Plan Need for Continued Stay: Severe depression anxiety, Discharge may exacerbated symptoms Progress Toward Problem(s) and Goals/Treatment Plan: discontinue neurontin increase seroquel to 200mg qhs motivational and group therapy monitor pt for psychopharmacological effects and side effect profile
[2017-08-26] MEDS: Pantoprazole 40 mg EC Tab PO SCH (09:36)
--- NOTE | 2017-08-26 16:40 | PCM.PYCHPN ---
Psychiatric Progress Note - Psychiatric Progress Note Patient seen today, length of contact: pt evaluated discussed with team chart reviewed Patient Chief Complaint: I do not know how to get out of this situation Problems Identified/Issues Discussed: pt evaluated with treatment team, pt continues to be unkempt, reported feeling depressed as he has no place to go and having financial difficulties motivational therapy provided, discussed with pt the negative impact of cocaine use on his mental health also discussed increasing seroquel and adding effexor as antidepressant pt reported clearing off of the auditory hallucintions, denied any current suicidal or homicidal ideations Medical Problems: pt has multiple inpatient hospitalizations, history of non compliance with treatment DSM 5 Symptoms Update: bipolar disorder cocaine use disorder Medication Change: Yes (start effexor ) Medical Record Reviewed: Yes Mental Status Examination - Cognitive Function Orientation: Person, Place Attention: WNL Concentration: WNL Association: WNL Fund of Knowledge: Poor Decription of patient's judgement and insights: poor insight and judgement - Mood Mood: Depressed, Anxious - Affect Affect: Constricted, Depressed - Speech Speech: Appropriate - Formal Thought Process Formal Thought Process: Hallucinations, Circumstantial Psychotic Thoughts and Behaviors: pt reoported clearing off of the auditory hallucinations - Suicidal Ideation Suicidal Ideation: No - Homicidal Ideation Homicidal Ideation: No Goal/Treatment Plan - Goal/Treatment Plan Need for Continued Stay: Severe depression anxiety, Discharge may exacerbated symptoms Progress Toward Problem(s) and Goals/Treatment Plan: increase seroquel to 300mg qhs start effexor 37.5 mg motivational and group therapy monitor pt for psychopharmacological effects and side effect profile
[2017-08-26] MEDS: QUEtiapine 300 MG TABLET PO SCH (21:19)
[2017-08-27] MEDS: Pantoprazole 40 mg EC Tab PO SCH (09:31)
--- NOTE | 2017-08-27 14:02 | PCM.PYCHPN ---
Psychiatric Progress Note - Psychiatric Progress Note Patient seen today, length of contact: pt seen and evaluated. Patient Chief Complaint: pt says that he is still having racing thoughts in his head to get into fight with some guys in community and harm them but wont give names.Pt remains with poor insight and need further titration of meds . Medication Change: Yes (start effexor ) Medical Record Reviewed: Yes Mental Status Examination - Cognitive Function Orientation: Person, Place Attention: WNL Concentration: WNL Association: WNL Fund of Knowledge: Poor - Mood Mood: Depressed, Anxious - Affect Affect: Constricted, Depressed - Speech Speech: Appropriate - Formal Thought Process Formal Thought Process: Hallucinations, Circumstantial - Suicidal Ideation Suicidal Ideation: No - Homicidal Ideation Homicidal Ideation: No Goal/Treatment Plan - Goal/Treatment Plan Need for Continued Stay: Severe depression anxiety, Discharge may exacerbated symptoms Progress Toward Problem(s) and Goals/Treatment Plan: will add seroquel 25 mg daily to further stabilize the pt and engage him in therapy
[2017-08-27] MEDS: QUEtiapine 300 MG TABLET PO SCH (21:12)
[2017-08-28] MEDS: Pantoprazole 40 mg EC Tab PO SCH (08:59)
--- NOTE | 2017-08-28 15:44 | PCM.PYCHPN ---
Psychiatric Progress Note - Psychiatric Progress Note Patient seen today, length of contact: pt seen and evaluated. Patient Chief Complaint: pt is still very impulsive and says that he is still having racing thoughts in his head to get into fight with some guys in community and harm them but wont give names.Pt remains with poor insight and need further titration of meds . Medication Change: Yes (start effexor ) Medical Record Reviewed: Yes Mental Status Examination - Cognitive Function Orientation: Person, Place Attention: WNL Concentration: WNL Association: WNL Fund of Knowledge: Poor - Mood Mood: Depressed, Anxious - Affect Affect: Constricted, Depressed - Speech Speech: Appropriate - Formal Thought Process Formal Thought Process: Hallucinations, Circumstantial - Suicidal Ideation Suicidal Ideation: No - Homicidal Ideation Homicidal Ideation: No Goal/Treatment Plan - Goal/Treatment Plan Need for Continued Stay: Severe depression anxiety, Discharge may exacerbated symptoms Progress Toward Problem(s) and Goals/Treatment Plan: will add seroquel 25 mg daily to further stabilize the pt and engage him in therapy Disposition plans as per dr kennedy
[2017-08-28] MEDS: QUEtiapine 300 MG TABLET PO SCH (21:25)
[2017-08-29] MEDS: Pantoprazole 40 mg EC Tab PO SCH (08:25)
--- NOTE | 2017-08-29 15:24 | PCM.PYCHPN ---
Psychiatric Progress Note - Psychiatric Progress Note Patient seen today, length of contact: pt seen and evaluated. Patient Chief Complaint: I feel anxious Problems Identified/Issues Discussed: pt seen in day room , reported feeling increasingly anxious and worried about being discharged, stated he is more anxious with effexor, and continues to feel depressed, discussed with pt increasing seroquel dose and discontinuing effexor pt attending groups, CBT provided pt reported clearing off of the auditory hallucintions, denied any current suicidal or homicidal ideations Medical Problems: pt has multiple inpatient hospitalizations, history of non compliance with treatment DSM 5 Symptoms Update: cocaine use disorder cannabis use disorder history of bipolar disorder Medication Change: Yes (discontinue effexor, increase seroquel) Medical Record Reviewed: Yes Mental Status Examination - Cognitive Function Orientation: Person, Place Attention: WNL Concentration: WNL Association: WNL Fund of Knowledge: Poor - Mood Mood: Depressed, Anxious - Affect Affect: Constricted, Depressed - Speech Speech: Appropriate - Formal Thought Process Formal Thought Process: Hallucinations, Circumstantial - Suicidal Ideation Suicidal Ideation: No - Homicidal Ideation Homicidal Ideation: No Goal/Treatment Plan - Goal/Treatment Plan Need for Continued Stay: Severe depression anxiety, Discharge may exacerbated symptoms Progress Toward Problem(s) and Goals/Treatment Plan: increase seroquel to 50mg bid 300mg qhs discontinue effexor 37.5 mg motivational and group therapy monitor pt for psychopharmacological effects and side effect profile
[2017-08-29] MEDS: QUEtiapine 300 MG TABLET PO SCH (21:19)
[2017-08-30 09:04] VITALS: BP 158/75; PULSE 115; RESP 20; TEMP 97.7
[2017-08-30] MEDS: Pantoprazole 40 mg EC Tab PO SCH (09:50)
--- NOTE | 2017-08-30 13:50 | PCM.PYCHDC ---
Mental Status Examination - Mental Status Examination Orientation: Person, Place, Situation Memory: Intact Mood: Neutral Affect: Broad Speech: Appropriate Attention: WNL Concentration: WNL Association: WNL Fund of Knowledge: WNL Formal Thought Process: No Impairment Description of patient's judgement and insight: poor insight and judgement Psychotic Thoughts and Behaviors: pt on discharge denied any current suicidal or homicidal ideations, denied perceptual disturbances Suicidal Ideation: No Current Homicidal Ideation?: No Discharge Summary - Discharge Note Reason for Hospitalization: pt requesting help Consultations:: List each consultation separately and include: 1. Reason for request. 2. Findings. 3. Follow-up Summary of Hospital Course include:: 1. Description of specific treatment plan utilized for patients during their course of treatmen. 2. Summarize the time- course for resolution of acute symptoms and/or regressed behaviors. 3. Describe issues identified and worked on during hospitalization. 4. Describe medication utilized. 5. Describe medical problems identified and treated. 6. Reassessment of suicide risk Summary of Hospital Course: Pt on admission was started on seroquel it was uptitrated to 400mg for mood stabilization and as antipsychotic pt was placed on neurontin for anxiety pt was encouraged to attend groups , no reported side effects of medications on discharge pt reported clearing off of the auditory hallucinations pt at current mental status on discharge denied any current suicidal or homicidal ideations, denied any current perceptual disturbances pt at current mental status not danger to self or others follow up arranged by social worker clinical at [facility] outpatient [facility] program - Diagnosis (1) Bipolar 1 disorder Current Visit: Yes Status: Acute - Final Diagnosis (DSM 5) Condition upon Discharge: STABLE DSM 5: cocaine induced psychotic disorder with hallucinations cocaine use disorder cocaine induced mood disorder with depressive features during withdrawal cannabis use disorder history of bipolar disorder Disposition: HOME/ ROUTINE Follow-up Treatment Plan: increase seroquel to 50mg bid 300mg qhs discontinue effexor 37.5 mg motivational and group therapy monitor pt for psychopharmacological effects and side effect profile Prescriptions/Medication Reconciliation: Atorvastatin [Lipitor] 20 mg PO DIN 30 Days #30 tab Atorvastatin [Lipitor] 20 mg PO DIN #30 tab hydrOXYzine Pamoate [Vistaril] 25 mg PO TID PRN 30 Days #90 cap PRN Reason: Anxiety Lisinopril [Zestril] 5 mg PO DAILY 30 Days #30 tab metFORMIN [glucOPHAGE] 850 mg PO BID 30 Days #60 tab QUEtiapine [SEROquel] 50 mg PO BID 30 Days #60 tab QUEtiapine [SEROquel] 300 mg PO HS 30 Days #30 tab SITagliptin [Januvia] 100 mg PO DAILY 30 Days #30 tab - Antipsychotic Medications Pt discharged on 2 or more routine antipsychotic medications: No
== END 2017-08-30 14:11 | disposition home or self-care (01) | DRG 747 ==
LOC: H.ER 21:38 → H.ERHOLD 08-22 03:21 → H.PSYCH 08-22 07:39
PROVIDERS: ADMIT Psychiatry & Neurology Psychiatry; ATTEND Psychiatry & Neurology Psychiatry
PROC: HZ52ZZZ Individual Psychotherapy for Substance Abuse Treatment, Cognitive-Behavioral (ICD-10-PCS; principal; 2017-08-22)
PROC: GZHZZZZ Group Psychotherapy (ICD-10-PCS; 2017-08-22)
PROC: GZ58ZZZ Individual Psychotherapy, Cognitive-Behavioral (ICD-10-PCS; 2017-08-22)
DX: F14.151 Cocaine abuse with cocaine-induced psychotic disorder with hallucinations (principal); J44.9 Chronic obstructive pulmonary disease, unspecified; F10.14 Alcohol abuse with alcohol-induced mood disorder; F31.9 Bipolar disorder, unspecified; F10.129 Alcohol abuse with intoxication, unspecified; F12.10 Cannabis abuse, uncomplicated; Y90.8 Blood alcohol level of 240 mg/100 ml or more; E11.9 Type 2 diabetes mellitus without complications; I10 Essential (primary) hypertension; M79.7 Fibromyalgia; F41.9 Anxiety disorder, unspecified; K21.9 Gastro-esophageal reflux disease without esophagitis; E78.5 Hyperlipidemia, unspecified; Z91.19 Patient's noncompliance with other medical treatment and regimen; F17.210 Nicotine dependence, cigarettes, uncomplicated; Z79.84 Long term (current) use of oral hypoglycemic drugs; Z59.0 Homelessness